=== PATIENT | female | born 1970 | race American Indian/Alaskan Native ===

== ENCOUNTER 2017-10-24 06:36 | Day surgery (SDC) | payer OTHER ==
[2017-10-10 10:05] VITALS: BMI 30.5
[2017-10-24] MEDS ORDERED: Propofol 10 mg/ml Inj (20 ML) ONE ×2 (08:11→08:27)
[2017-10-24] MEDS ORDERED: Sodium Chloride 0.9% 1,000 ML IV SCH (08:45)
[2017-10-24 09:42] VITALS: BP 122/69; TEMP 97.8; O2SAT 100
[2017-10-24 09:43] VITALS: PULSE 56; RESP 20
== END 2017-10-24 09:59 | disposition home or self-care (01) ==
LOC: ENDO 06:36
PROVIDERS: ATTEND Internal Medicine Gastroenterology
DX: K92.1 Melena (principal); K64.1 Second degree hemorrhoids
CPT/HCPCS: 45378; 84703; J2001; J2704; J7030; J7040